=== PATIENT | female | born 1985 | race Caucasian/White ===

== ENCOUNTER → 2016-10-14 | Outpatient (CLI) | payer BC ==
[2016-10-14 17:45] LABS: BASOPHILS # (AUTO) 0.06 10*3/UL; BASOPHILS % (AUTO) 0.9 % (0-1); EOSINOPHILS % (AUTO) 1.4 % (0-8); HEMATOCRIT 39.5 % (37.0-47.0); HEMOGLOBIN 13.9 g/dL (12.0-16.0); IMM GRAN % (AUTO) 0.3 % (0-5); IMM GRAN# (AUTO) 0.02 10*3/UL; LYMPHOCYTES % (AUTO) 49.5 % (10-50); MEAN CORPUSCULAR HEMOGLOBIN 29.7 PG (27-31); MEAN CORPUSCULAR HGB CONC 35.2 g/dL (33-37); MEAN PLATELET VOLUME 9.3 FL (7.4-12.2); MONOCYTES # (AUTO) 0.63 10*3/UL (0.3-0.8); MONOCYTES % (AUTO) 9.8 % (5-15); NEUTROPHILS # (AUTO) 2.46 10*3/UL; NEUTROPHILS % (AUTO) 38.1 % (50-80); RED BLOOD COUNT 4.68 10^6/uL (4.20-5.40); WHITE BLOOD COUNT 6.46 10^3/uL (4.8-10.8)
[2016-10-14 17:46] LABS: PLATELET MORPHOLOGY COMMENT NORMAL MORPHOLOGY (NORM)
[2016-10-14 17:53] LABS: PRENATAL QUESTION YES (Y)
[2016-10-14 17:59] LABS: HIV ANTIBODY NEGATIVE (N); HIV-1 P24 ANTIGEN NEGATIVE (N)
[2016-10-16 10:36] LABS: HEP B SURFACE AG Negative (Negative)
[2016-10-16 13:37] LABS: RUBELLA IGG INDEX 1.7 (()); SYPHILIS IGG WITH REFLEX Negative (Negative)
== END ==
LOC: MOB LAB 16:36
PROVIDERS: ATTEND Family Medicine
DX: Z36 Encounter for antenatal screening of mother (principal); Z3A.01 Less than 8 weeks gestation of pregnancy
CPT/HCPCS: 36415; 80081; 86900; 86901; 87088

== ENCOUNTER → 2016-10-30 | Outpatient (CLI) | payer BC ==
--- NOTE | 2016-10-30 22:57 | DI ---
OBSTETRICAL ULTRASOUND, 10/30/2016 3:27 PM: Clinical History: Verify dates. Previous Exam: None at this facility for this . LMP: 08/20/2016. There is a single live IUP currently in unstable position. Amnionic fluid content is normal. The plac enta is indeterminant. heart rate is 172 beats/minute and regular. The yolk sac is visualized. Both ovaries are normal but the left ovary has multiple small follicular cysts around the perimeter p roducing the "string of pearls" appearance that is associated with polycystic ovarian syndrome. The r ight ovary shows a less pronounced pattern than that of the left ovary. CRL measurement is 17 mm. Thi s measurement corresponds to an EGA value of 8 weeks 2 days. The [place] EDC is 06/09/2017. EDC by LMP is . Readin. Single live fetus with unstable presentation and normal amniotic fluid content. 2. The composite EGA is 8 weeks 2 days with an ultrasound EDC of 06/09/2017. This is in contrast to th e EDC of 05/27/2017, based on LMP of 08/20/2016. 3. There is the appearance of the "string of pearls" sign involving the ovaries. This is associated with but not diagnostic of polycystic ovarian syndrome.
== END ==
LOC: US 15:19
PROVIDERS: ATTEND Family Medicine
DX: Z36 Encounter for antenatal screening of mother (principal)
CPT/HCPCS: 76801

== ENCOUNTER → 2017-01-20 | Outpatient (CLI) | payer BC ==
--- NOTE | 2017-01-20 20:44 | DI ---
OBSTETRICAL ULTRASOUND, 01/20/2017 1:56 PM: Clinical History: Antepartum screening. Previous Exam: 10/30/2016. ADJUSTED DATE FROM EARLY OBUS: 09/02/2016. There is a single live IUP currently in vertex presentation. Amnionic fluid content is normal. activity is observed as follows: cardiac and extremity. The placenta is anterior corpus and Grade 1. heart rate is 143 beats/minute and regular. There is a 3 vessel cord. The RVOT, LVOT and 4 balbir obinna heart view are normal. The aortic arch and descending aorta are normal. Views of the spine, face, and kidneys are unremarkable. BPD, HC, AC, and FL measurements are 47 mm, 180 mm, 156 mm, and 36 mm, respectively. These measurements correspond to EGA values of 20 weeks 2 days, 20 weeks 4 days, 20 weeks 6 days and 21 weeks 3 days, respectively. Composite EGA is 20 weeks 6 days. The [place] EDC is . EDC by adjusted LMP is 06/09/2017. Readin. Single live fetus with vertex presentation and normal amniotic fluid content. Placenta is anterio r corpus and grade 1. 2. The composite EGA is 20 weeks 6 days with an ultrasound EDC of 06/03/2017. Based on the adjusted L MP date of 09/02/2016, the EDC would be 06/09/2017.
== END ==
LOC: US 13:52
PROVIDERS: ATTEND Family Medicine
DX: Z36 Encounter for antenatal screening of mother (principal); Z3A.20 20 weeks gestation of pregnancy
CPT/HCPCS: 76805

== ENCOUNTER → 2017-03-26 | Outpatient (CLI) | payer SELFPAY ==
[2017-03-26 08:06] LABS: HEMATOCRIT 37.1 % (37.0-47.0); HEMOGLOBIN 12.6 g/dL (12.0-16.0); MEAN CORPUSCULAR VOLUME 91.2 FL (81-99); MEAN PLATELET VOLUME 9.8 FL (7.4-12.2); RED BLOOD COUNT 4.07 10^6/uL (4.20-5.40)
== END ==
LOC: LAB 07:40
PROVIDERS: ATTEND Family Medicine
DX: Z36 Encounter for antenatal screening of mother (principal); O36.0130 Maternal care for anti-D [Rh] antibodies, third trimester, not applicable or unspecified; Z3A.29 29 weeks gestation of pregnancy
CPT/HCPCS: 36415; 82950; 84443; 85027; 86850; 86900; 86901; J2790

== ENCOUNTER → 2017-03-31 | Outpatient (CLI) | payer SELFPAY ==
--- NOTE | 2017-03-31 12:48 | DI ---
US OB , LIMITED,03/31/2017 10:42 AM: Clinical History: Uterine size date discrepancy in the third trimester Previous Exam: January 20, 2017 Findings: Multiple grayscale and color Doppler sonographic images are obtained through the pelvis, and demonstr ate a single live intrauterine gestation with a amniotic fluid index at the high end of normal. The cervix is long and closed measuring 5.3 cm in length. Estimated gestational age is determined by a composite of biparietal diameter, head circumference, ab dominal circumference and femur length yielding an estimated gestational age by ultrasound of 33 week s one day. Detected Doppler heart tones measure 140 beats per minute. Estimated weight is 2138 g corresponding with the 98th percentile. Abdominal circumference lies at greater than the 98th percentile. Impression: Single live intrauterine gestation with size measuring 3 weeks and one day greater than dates.
== END ==
LOC: US 10:34
PROVIDERS: ATTEND Family Medicine
DX: O26.843 Uterine size-date discrepancy, third trimester (principal); Z3A.30 30 weeks gestation of pregnancy
CPT/HCPCS: 76815

== ENCOUNTER → 2017-04-24 | Outpatient (CLI) | payer BC ==
--- NOTE | 2017-04-24 20:03 | DI ---
LIMITED OBSTETRICAL ULTRASOUND, 04/24/2017 1:19 PM Clinical History: Uterine size-date discrepancy, third trimester. Size greater than dates. Previous Exam: 03/31/2017. ADJUSTED LMP: 08/11/2016. There is a single live IUP currently in vertex presentation. Amnionic fluid content is increased for this stage of , consistent with polyhydramnios. Amniotic fluid index is 20.9 cm. activ ity is observed as follows: cardiac and extremity. The placenta is anterior corpus and Grade 1. heart rate is 142 beats/minute and regular. Distal femoral epiphyses are visualized. BPD, HC, AC, an d FL measurements are 89 mm, 319 mm, 322 mm, and 70 mm, respectively. These measurements correspond t o EGA values of 36 weeks 1 day, 36 weeks 0 days, 36 weeks 1 day 36 weeks, and 36 weeks 0 days, respec tively. Composite EGA is 36 weeks one day The [place] EDC is 05/21/2017. EDC by adjusted LMP is 05/18/2017. LMP percentile is 39%. Estimated weight is 2830 g, plus or minus 413 g. Readin. Single live fetus with vertex presentation. Amniotic fluid content is increased for this stage of consistent with mild polyhydramnios. Amnionic fluid index is 20.9 cm. Placenta is anterior corpus and grade 1. 2. The composite EGA is 36 weeks 1 day with an ultrasound EDC of 05/21/2017. Based on the adjusted LM P date of 08/11/2016, the EDC would be 05/18/2017. 3. LMP percentile is 39%. Estimated weight is 2830 g, plus or minus 413 g.
== END ==
LOC: US 14:04
PROVIDERS: ATTEND Family Medicine
DX: O26.843 Uterine size-date discrepancy, third trimester (principal); O40.3XX0 Polyhydramnios, third trimester, not applicable or unspecified; Z3A.33 33 weeks gestation of pregnancy
CPT/HCPCS: 76815

== ENCOUNTER → 2017-05-14 | Outpatient (CLI) | payer BC | LOC: MOB LAB 11:00 | PROVIDERS: ATTEND Family Medicine | DX: Z36 Encounter for antenatal screening of mother (principal); Z3A.36 36 weeks gestation of pregnancy | CPT/HCPCS: 87150 ==

== ENCOUNTER → 2017-05-26 | Outpatient (CLI) | payer BC ==
--- NOTE | 2017-05-26 12:10 | DI ---
LIMITED OBSTETRICAL ULTRASOUND, 05/26/2017 8:39 AM Clinical History: Uterine size/date discrepancy in the third trimester. Large for dates. Previous Exam: 04/24/2017. ADJUSTED LMP: 09/02/2016. There is a single live IUP currently in vertex presentation. Amnionic fluid content is increased for this stage of indicating polyhydramnios. Amniotic fluid index is 26.8 cm. activity is observed as follows: cardiac and extremity. The placenta is anterior corpus and probably Grade 1. Fe guido heart rate is 152 beats/minute and regular. Distal femoral epiphyses are visualized. BPD, HC, AC, and FL measurements are 97 mm, 345 mm, 340 mm, and 77 mm, respectively. These measurements correspon d to EGA values of 39 weeks 5 days, 40 weeks 0 days, 38 weeks 0 days, and 39 weeks 3 days, respective ly. Composite EGA is 39 weeks 2 days. The [place] EDC is 05/31/2017. EDC by adjusted LMP is 06/09/2017. LMP p ercentile is 79%. Estimated weight is 3568 g, plus or minus 521 g. Readin. Single live fetus with vertex presentation. There is polyhydramnios. Amnionic fluid index is 26.8 cm. 2. The composite EGA is 39 weeks 2 days with an ultrasound EDC of 05/31/2017. This is compared to the EDC of 06/09/2017, that is based on the adjusted LMP date of 09/02/2016. 3. LMP percentile is 79%. Estimated weight is 3568 g, plus or minus 521 g.
== END ==
LOC: US 08:33
PROVIDERS: ATTEND Family Medicine
DX: O26.843 Uterine size-date discrepancy, third trimester (principal); O40.3XX0 Polyhydramnios, third trimester, not applicable or unspecified; Z3A.38 38 weeks gestation of pregnancy
CPT/HCPCS: 76815

== ENCOUNTER 2017-06-03 06:00 | Inpatient (IN) ==
[~2017-06-03 06:00] MED LIST: CITRIC ACID/SODIUM CITRATE 30 ML CUP PO ONE; CefOXitin Inj 2 GM in Sodium Chloride 0.9% 100 ML IV ONE; Famotidine Inj 20 MG in Normal Saline Flush 10 ML IVP ONE; LIDOCAINE W/ SODIUM BICARB 0.5 ML SYR SUBD PRN; Lactated Ringers 1,000 ML PRIMARY IV ONE; Metoclopramide Inj 10 MG/2 ML VIAL IV ONE; NORMAL SALINE 10 ML SYRINGE FLUSH IVP PRN; Oxytocin 20 Units + LR 1,000 ML IV SCH
[2017-06-03] MEDS: Lactated Ringers 1,000 ML PRIMARY IV SCH ×2 (06:15→07:00)
[2017-06-03 06:40] LABS: Hematocrit [HCT] 39.1 % (37.0-47.0); Hemoglobin [HGB] 13.2 g/dL (12.0-16.0); MEAN CORPUSCULAR HGB CONC 33.8 g/dL (33-37); MEAN CORPUSCULAR VOLUME 91.8 FL (81-99); MEAN PLATELET VOLUME 10.1 FL (7.4-12.2); RED BLOOD COUNT 4.26 10^6/uL (4.20-5.40)
[2017-06-03] MEDS ORDERED: ePHEDrine Inj 50 MG/ML AMP ONE (07:12)
[2017-06-03] MEDS ORDERED: Oxytocin 20 Units + LR 1,000 ML IV ONE (07:41)
[2017-06-03] MEDS ORDERED: Lactated Ringers 1,000 ML PRIMARY IV ONE (08:12)
[2017-06-03] MEDS ORDERED: PHENYLEPHRINE 10,000 MCG/1 ML VIAL ONE (08:14)
[2017-06-03] MEDS ORDERED: Sodium Chloride 0.9% vial 10 ML ONE (08:14)
[2017-06-03] MEDS ORDERED: HYDROmorphone 2 MG/1 ML IVP PRN (08:54)
[2017-06-03] MEDS ORDERED: ONDANSETRON 4 MG/2 ML VIAL IVP PRN ×2 (08:54→09:37)
[2017-06-03] MEDS ORDERED: fentaNYL Inj 100 MCG/2 ML VIAL IVP PRN (08:54)
[2017-06-03] MEDS ORDERED: PROMETHAZINE 25 MG/1 ML VIAL IM PRN (08:54)
[2017-06-03] MEDS ORDERED: NORMAL SALINE 10 ML SYRINGE FLUSH IVP PRN (08:54)
--- NOTE | 2017-06-03 08:56 | CRNA.PROCE ---
Central Neuraxis Block Placemt - - Safety Measures: Time Out Taken, Site Verified - - Type of Block: Subarachnoid Reason for Block: Surgical Moniters Used During Block: EKG, SPO2, NIBP Positioning: Sitting Skin Prep Used: Betadine Skin Infiltration - Enter Amount Used in Comment Field: 1% Xylocaine (mL): Yes Introducer User: 23 Gauge Spinal Needle Used: 25 Maryann 80 mm Local Anesthetic - Enter Amount Used in Comment Field: 0.75 % Bupivacaine with Dextrose (ml): Yes (12mg) Additive Used - Enter Amount Used in Comment Field: Epinephrine 1:1000 Needle Rinse (mL): Yes - - Additional Details: SAB placed in OR for repeat csection.
[2017-06-03] MEDS ORDERED: Lactated Ringers 1,000 ML PRIMARY IV SCH (09:00)
[2017-06-03] MEDS ORDERED: Carboprost Inj 250 MCG/ML AMP IM PRN (09:37)
[2017-06-03] MEDS ORDERED: LANOLIN HPA 40 GM TUBE TOPICAL PRN (09:37)
[2017-06-03] MEDS ORDERED: OXYTOCIN 10 UNIT/1 ML IM ONE (09:37)
[2017-06-03] MEDS ORDERED: Nalbuphine Inj 20 MG/ML Ampule IVP PRN (09:37)
[2017-06-03] MEDS ORDERED: MISOPROSTOL 200 MCG TABLET RECTAL ONE (09:37)
[2017-06-03] MEDS ORDERED: Methylergonovine Tab 0.2 MG TAB PO PRN (09:37)
[2017-06-03] MEDS ORDERED: DIPH,PERTUSS,TET(ADACEL) VAC/PF 0.5 ML (Tdap) IM ONE (09:37)
[2017-06-03] MEDS ORDERED: METHYLERGONOVINE MALEATE 0.2 MG/1 ML VIAL IM PRN (09:37)
[2017-06-03] MEDS ORDERED: diphenhydrAMINE 25 MG CAPSULE PO PRN (09:37)
[2017-06-03] MEDS ORDERED: Naloxone Inj 0.01 MG, Sodium Chloride 0.9% vial 1 ML IVP PRN ×2 (09:37)
[2017-06-03] MEDS ORDERED: CALCIUM CARBONATE 500 MG (TUMS) CHEWABLE TABLET PO PRN (09:37)
[2017-06-03] MEDS ORDERED: Oxytocin 20 Units + LR 1,000 ML IV SCH (09:37)
[2017-06-03] MEDS ORDERED: diphenhydrAMINE 50 MG/1 ML VIAL IV PRN (09:37)
[2017-06-03] MEDS ORDERED: Famotidine Inj 20 MG in Normal Saline Flush 10 ML IVP PRN (09:37)
--- NOTE | 2017-06-03 09:37 | OB.OP.NOTE ---
Operative Report Surgeon: Toby Santos MD Composite Bond Technician: Vasu Mckeon MD Anesthesia Type: Regional Anesthesia Provider: Trav Talamantes CRNA Surgery Date: 06/03/17 Preoperative Diagnosis: Previous Section x 3; Desired Parity Postoperative Diagnosis: same, delivered Procedure: Repeat low transverse section with bilateral tubal ligation with Filshie clips. Complications: none Estimated Blood Loss (mL): 600 Urine Output (mL): 150 Fluids: 1400 cc of LR intraoperatively. Indications: The pt has had 3 previous sections and is not a candidate for a vaginal after . She is requesting a repeat section with tubal ligation for desired parity. Findings: polyhydramnios; female in cephalic presentation. Nuchal cord x 1. Description of Procedure: The patient was taken to the operating room where spinal anesthesia was found to be adequate. She was then prepared and draped in the normal sterile fashion in the dorsal supine position with a leftward tilt. A Pfannenstiel skin incision was then made with the scalpel and carried through to the underlying layer of fascia with the Bovie. The fascia was incised in the midline and the incision extended laterally with the Bovie. The superior aspect of the fascial incision was then grasped with Robert clamps, elevated, and the underlying rectus muscles dissected off bluntly. Attention was then turned to the inferior aspect of this incision which, in a similar fashion was grasped with Robert clamps and the rectus muscles dissected off both bluntly and with the Bovie. The rectus muscle was then in the midline, and the peritoneum identified and entered in a blunt fashion. The peritoneal incision was then extended superiorly and inferiorly with good visualization of the bladder. The Erik retractor was then inserted and the vesicouterine peritoneum was identified. The lower uterine segment was thin, and incised in a transverse fashion with the scalpel. The uterine incision was then extended laterally in a blunt fashion. There was a copious amount of amniotic fluid. The 's head was delivered atraumatically. The nose and mouth were suctioned with the bulb suction and the cord was clamped and cut. The infant was handed off to the awaiting nurse. Cord gases and cord blood were sent for analysis. The placenta was then removed manually; the uterus exteriorized, and cleared of all clots and debris. The uterine incision was repaired with 0 Vicryl in a running, locked fashion. A figure of 8 suture was placed over the left lateral margin of the incision due to bleeding from the suture points. The left fallopian tube was identified and a Filshie clip was placed in the isthmic region. This procedure was repeated with the right tube. The peritoneal cavity was then copiously irrigated with warm saline. The uterus was returned to the abdomen. Both paracolic gutters were copiously irrigated with warm saline and a second look at the uterine incision continued to reveal excellent hemostasis. The peritoneum was closed with 3-0 Vicryl. The fascia was reapproximated with 0 PDS in a running fashion. The subcutaneous space was irrigated with copiously with warm saline and the closed first with 3-0 Vicryl Rapide and then more superficially with Insorb absorbable sutures. The skin was reapproximated with Steri-Strips and a Silverlon dressing applied. Fundal massage was completed with no clots in vaginal vault. The patient tolerated the procedure well. Sponge, lap, and needle counts were correct x2. Ancef was given preoperatively less than one hour prior to incision time. The patient was taken to the recovery room in stable condition.
[2017-06-03] MEDS: oxyCODONE-ACETAMINOPHEN 5-325 TAB PO PRN ×3 (10:06→20:00)
[2017-06-03] MEDS: KETOROLAC 15 MG/1 ML VIAL IVP PRN ×3 (10:07→22:45)
[2017-06-03] MEDS: D5-LR 1,000 ML PRIMARY IV SCH ×2 (10:33→18:48)
[2017-06-03] MEDS: NORMAL SALINE 10 ML SYRINGE FLUSH IVP PRN ×2 (15:41→22:45)
[2017-06-03] MEDS ORDERED: RHO(D) IMMUNE GLOBULIN 1500 UNIT(300 mcg)SYRIN IM PRN (16:24)
[2017-06-04] MEDS: oxyCODONE-ACETAMINOPHEN 5-325 TAB PO PRN ×6 (00:08→22:47)
[2017-06-04] MEDS: D5-LR 1,000 ML PRIMARY IV SCH (03:20)
[2017-06-04] MEDS: KETOROLAC 15 MG/1 ML VIAL IVP PRN ×2 (05:07→13:30)
[2017-06-04] MEDS: NORMAL SALINE 10 ML SYRINGE FLUSH IVP PRN ×2 (05:08→13:32)
[2017-06-04 05:27] LABS: Hemoglobin [HGB] 11.6 g/dL (12.0-16.0); MEAN CORPUSCULAR HEMOGLOBIN 31.1 PG (27-31); MEAN CORPUSCULAR HGB CONC 33.1 g/dL (33-37); MEAN CORPUSCULAR VOLUME 93.8 FL (81-99); MEAN PLATELET VOLUME 10.2 FL (7.4-12.2); RED BLOOD COUNT 3.73 10^6/uL (4.20-5.40)
[2017-06-04] MEDS: Senna/Docusate Tab 1 TAB TAB PO SCH ×2 (09:07→20:28)
[2017-06-04] MEDS: Prenatal Multivitamin Tab 1 TAB TAB PO SCH (09:07)
--- NOTE | 2017-06-04 13:39 | CRNA.PROGR ---
Anesthesia Note Anesthesia Progress Note: Anesthesia Post OP Note Pt was just up to the shower and ambulating prior to this post op visit. She denies any residual problems from the SAB. She is tolerating a regular diet. Pt states that her pain is well under control. Current VS stable. Vital Signs (Last 8 hours) Temp Pulse Pulse Resp BP Pulse Ox 06/04/17 09:00 97.9 F 80 18 109/66 95 06/04/17 07:00 72
[2017-06-04] MEDS: IBUPROFEN 800 MG TABLET PO PRN (20:28)
[2017-06-05] MEDS: oxyCODONE-ACETAMINOPHEN 5-325 TAB PO PRN ×4 (02:51→18:48)
[2017-06-05] MEDS: IBUPROFEN 800 MG TABLET PO PRN ×2 (04:21→16:54)
[2017-06-05] MEDS: Prenatal Multivitamin Tab 1 TAB TAB PO SCH (08:23)
[2017-06-05] MEDS: Senna/Docusate Tab 1 TAB TAB PO SCH ×2 (08:23→21:21)
--- NOTE | 2017-06-05 08:58 | OB.PROGRES ---
Subjective Post Op Day: 1 Pain Management: PO Lala Catheter: No Flatus: No Diet: Regular [place] Feeding Method: Exculsively Ambulating: Yes Concerns / Additional Information: Mild lochia, feeling good. No concerns. Objective - General General Appearance: POSITIVE: No Acute Distress, Cooperative - Cardiovacular Cardiovascular Exam: POSITIVE: RRR, No Murmur Edema: No Pedal Edema Extremities: Negative Brianna's - Bilaterally - Respiratory Respiratory Exam: POSITIVE: Clear to Auscultation - Bilaterally, Breathing Non Labored - Abdomen Bowel Sounds: Hypoactive Abdominal Wound Assessment: Silverlone Dressing - Fundus/Lochia/Perineum Uterus Consistency: Firm Assesstment / Plan (1) Status post repeat low transverse section Current Visit: No Status: Acute Assessment / Plan: -encouraged ambulation. -pain is well controlled with po meds. -rh negative--got rhogam. -rubella immune. -breast feeding going well--baby is tongue tied and will get this released on Friday. -d/c home in 1-2 days.
[2017-06-05 21:38] VITALS: RESP 20; TEMP 98.6
--- NOTE | 2017-06-21 11:35 | OB.PROGRES ---
Subjective Post Op Day: 2 Pain Management: PO Lala Catheter: No Flatus: Yes Diet: Regular Feeding Method: Exculsively Ambulating: Yes Concerns / Additional Information: Reports that her young son has developed gastroenteritis overnoc with vomiting and diarrhea. Wondering if it would good idea to stay overnoc again to avoid this illness. Would also like some additional help with breast feeding as baby is tongue-tied and has a little bit of trouble latching. Objective - General General Appearance: POSITIVE: No Acute Distress, Cooperative - Cardiovacular Cardiovascular Exam: POSITIVE: RRR, No Murmur Edema: +1 Pedal Edema Extremities: Negative Brianna's - Bilaterally - Respiratory Respiratory Exam: POSITIVE: Clear to Auscultation - Bilaterally, Breathing Non Labored - Abdomen Bowel Sounds: Hypoactive Abdominal Wound Assessment: Silverlone Dressing - Fundus/Lochia/Perineum Uterus Consistency: Firm Uterus Position: POSITIVE: At Umbilicus Assesstment / Plan (1) Status post repeat low transverse section Status: Acute Assessment / Plan: -continue current cares. -continue breast feeding assistance. -rubella immune. -rh negative--will check baby's blood type. -d/c home tomorrow.
--- NOTE | 2017-06-21 11:41 | DCSUMMARY ---
Hospitalization Summary Admit Date: 06/03/17 Discharge Date: 06/06/17 Primary Diagnosis:: Previous section Secondary Diagnosis:: Desired parity Primary Surgery and Date: Repeat section with bilateral tubal ligation with filshie clips Delivery Type: Hospital Course: Pt was admitted for repeat section with a history of 3 previous cesareans. She also requested bilateral tubal ligation secondary to desired parity. / Postop Complications: Pt had a normal post-operative course with no complications. On the day of discharge, she was independent in her activities of daily living and baby was nursing reasonably well. She was requesting discharge home. Complications: Baby girl Lb had no acute issues during her hospital stay and had a normal course. She was noted to have a tongue tie, and this is scheduled to be clipped on the day of discharge at the ENT office in [place]. Exam - Vitals Vital Signs: Vital Signs Temperature 98.6 F Temperature Source Oral Pulse Rate [Apical] 74 Pulse Rate [Pulse Oximeter 75 Radial] Pulse Rate 62 Respiratory Rate 20 Blood Pressure [Right Arm] 113/77 Blood Pressure [Left Arm] 110/71 Blood Pressure 98/67 Pulse Ox 94 Oxygen Delivery Method Room Air Height 5 ft 4 in Weight 187 lb - General General Appearance: No Acute Distress, Cooperative - Head Head Exam: Normal Inspection, Normocephalic, Atraumatic - Eye Eye Exam: POSITIVE: Normal Appearance, PERRL, EOMI, No Scleral Icterus - ENT ENT Exam: POSITIVE: Normal Exam, Normal External Ear Exam, Normal Oropharynx, TM 's Normal Bilaterally, Mucous Membranes Moist - Neck Neck Exam: Normal Inspection, Full ROM, No Tenderness, No Lymphadenopathy, No Thyromegaly, JVP is not Raised - Respiratory Respiratory Exam: POSITIVE: Clear to Auscultation - Bilaterally, Breathing Non Labored, Normal To Percussion, Normal to Percussion and Palpation - Cardiovascular Cardiovascular Exam: POSITIVE: RRR, No Murmur, No Clicks, No Gallops, No Rubs, PMI Non-Displaced - GI/Abdominal GI/Abdominal Exam: POSITIVE: Normal Bowel Sounds, Non Tender, Non Distended, Soft, No Masses, No Hepatomegaly, No Splenomegaly, No Organomegaly - Rectal Rectal Exam: POSITIVE: Deferred - External Exam: POSITIVE: Deferred Exam: POSITIVE: Deferred - Extremities Extremities Exam: POSITIVE: Normal Inspection, Full ROM, Normal Capillary Refill , No Clubbing Present, No Edema Present, No Cyanosis Present, Negative Brianna's sign, Dosalis Pedis Pulses - Stong & Regular - Back Back Exam: POSITIVE: Normal Inspection, Full ROM, No CVA Tenderness - Neurological Neurological Exam: POSITIVE: Alert, Oriented x 3, Reflexes Normal, Normal Gait, CN II-XII Intact, No Facial Droop, Speech Intact / Clear, Moves All Extremities Equally, No Fasciculations, No Clonus - Psychiatric Psychiatric Exam: POSITIVE: Normal Affect, Normal Mood - Integumentary Integumentary Exam: POSITIVE: Normal Color, Warm, Dry, Intact Patient Problems - Patient Problem List (1) Status post repeat low transverse section Status: Acute Code(s): Z98.89 - Other specified postprocedural states Category: Medical
== END 2017-06-06 12:30 | disposition home or self-care (01) | DRG 766 ==
LOC: OBOR 06:00 → OBIP 09:43 → OBOR 09:43
PROVIDERS: ADMIT Family Medicine; ATTEND Family Medicine